=== PATIENT | female | born 1970 | race Caucasian/White ===

== ENCOUNTER 2016-08-18 20:16 | Emergency (ER) | payer OTHER ==
[~2016-08-18] VITALS: Ht 149.8 cm; Wt 62.6 kg
[~2016-08-18 20:16] MED LIST: ANAPROX DS550 MG PO; ASPIRIN ADULT L81 M1 PO; ASPIRIN81 M1 PO; AUGMENTIN 875875 MG PO; CATAFLAM50 MG PO; CLARITIN10 MG PO; CYMBALTA60 MG PO; DIFLUCAN150 MG PO; DONNATAL1 TAB PO; DUONEB 3 MG/3 ML3 M1 INH; ELIMITE 5%60 GM PO; ELMIRON100 MG PO; FLAGYL500 MG PO; FLEXERIL10 MG PO; FLONASE 0.05% 121 EA NAS; HYDROCODONE BIT1 T11 PO; IBUPROFEN600 MG PO; INDOCIN50 MG PO; KEFLEX500 M1 PO; KEFLEX500 MG PO; LAMICTAL100 MG PO; LYRICA100 MG PO; LYRICA50 MG PO; MACROBID100 M1 PO; MACRODANTIN100 MG PO; MOTRIN800 MG PO; NEXIUM40 MG PO; PEPCID20 MG PO; PREDNICOT20 MG PO; PREDNISONE20 MG PO; PROAIR HFA0.09 MG/AC IH; PYRIDIUM200 MG PO; REGLAN5 MG PO; SIMVASTATIN40 MG PO; SOMA250 MG PO; SOMA350 MG PO; TOBRADEX 0.1%-0.5 ML OPH; TOPAMAX100 M1 PO; TOPAMAX100 MG PO; TRAZODONE100 MG PO; ULTRAM50 MG PO; VIBRA-TAB100 MG PO; VIBRAMYCIN100 MG PO; VICODIN 5/500 505 MG PO; VICODIN 500 MG-1 TAB PO; VISTARIL50 MG PO; XANAX0.5 MG PO; XANAX1 MG PO; ZITHROMAX Z PA250 MG PO; ZITHROMAX250 MG PO; ZOFRAN ODT4 MG SL; Zofran4 MG PO
[2016-08-18] MEDS ORDERED: NORCO 5-325 TA1 EACH PO (20:28)
[2016-08-18] MEDS ORDERED: MELOXICAM15 MG PO (20:28)
[2016-08-18 20:58] LABS: BASO % 0.3 % (0.0-1.0); EOS # 0.1 10*3/uL (0.0-0.4); EOS % 1.4 % (1.0-4.0); HEMATOCRIT 41.1 % (37.0-47.0); HEMOGLOBIN 13.6 g/dl (12.0-16.0); LYMPH # 3.5 10*3/uL (1.3-4.4); LYMPH % 48.8 % (27.0-41.0); MEAN CELL VOLUME 95.6 fl (81.0-99.0); MEAN CORPUSCULAR HGB 31.6 pg (27.0-31.0); MEAN CORPUSCULAR HGB CONC 33.1 g/dl (33.0-37.0); MEAN PLATELET VOLUME 9.2 fl (9.6-12.3); MONO # 0.4 10*3/uL (0.1-1.0); MONO % 6.2 % (3.0-9.0); NEUT # 3.1 10*3/uL (2.3-7.9); PLATELET COUNT AUTOMATED 208 10*3/uL (130-400); RED CELL DISTRI WIDTH 13.1 % (0-14.5); WHITE BLOOD COUNT 7.1 10*3/uL (4.8-10.8)
[2016-08-18 21:08] LABS: PROTHROMBIN TIME 10.3 SECONDS (9.0-12.4)
[2016-08-18 21:21] LABS: ALBUMIN 3.9 gm/dl (3.1-4.5); ALKALINE PHOSPHATASE 67 U/L (45-117); BILIRUBIN, TOTAL 0.3 mg/dl (0.2-1.0); BUN 20 mg/dl (7-24); CARBON DIOXIDE 24 mmol/L (21-32); CHLORIDE 113 mmol/L (98-107); EST GLOM FILT AFRICAN AMERICAN > 60 ml/min; GLUCOSE 96 mg/dL (65-99); POTASSIUM 3.8 mmol/L (3.5-5.1); SGOT/AST 9 IU/L (3-35); SGPT/ALT 24 U/L (12-78); SODIUM 146 mmol/L (136-145); TOTAL PROTEIN 6.9 gm/dL (6.4-8.2)
[2016-08-18 21:23] LABS: TROPONIN I < 0.015 ng/ml (<0.5)
[2016-08-18] MEDS ORDERED: Motrin,Rufen800 MG PO (22:00)
[2016-08-18] MEDS ORDERED: CYCLOBENZAPRINE5 M3 PO (22:00)
== END 2016-08-18 22:11 | disposition home or self-care (01) ==
LOC: ED 20:16
PROVIDERS: Emergency Medicine Emergency Medical Services
DX: R07.89 Other chest pain (principal); F17.200 Nicotine dependence, unspecified, uncomplicated; Z79.82 Long term (current) use of aspirin; Z98.890 Other specified postprocedural states; Z90.710 Acquired absence of both cervix and uterus; Z88.2 Allergy status to sulfonamides; Z91.040 Latex allergy status; Z88.1 Allergy status to other antibiotic agents

== ENCOUNTER 2016-12-20 09:05 | Emergency (ER) | payer OTHER ==
[~2016-12-20] VITALS: Ht 149.8 cm; Wt 64.4 kg
[~2016-12-20 09:05] MED LIST changes: +CYCLOBENZAPRINE5 M3 PO; +MELOXICAM15 MG PO; +Motrin,Rufen800 MG PO; +NORCO 5-325 TA1 EACH PO
[2016-12-20] MEDS ORDERED: ONDANSETRON HYDR4 MG PO (09:15)
[2016-12-20 09:45] LABS: BASO % 0.2 % (0.0-1.0); EOS # 0.1 10*3/uL (0.0-0.4); EOS % 1.3 % (1.0-4.0); HEMATOCRIT 41.1 % (37.0-47.0); HEMOGLOBIN 13.5 g/dl (12.0-16.0); MEAN CELL VOLUME 95.6 fl (81.0-99.0); MEAN CORPUSCULAR HGB 31.4 pg (27.0-31.0); MEAN CORPUSCULAR HGB CONC 32.8 g/dl (33.0-37.0); MEAN PLATELET VOLUME 9.7 fl (9.6-12.3); MONO # 0.4 10*3/uL (0.1-1.0); MONO % 6.5 % (3.0-9.0); NEUT # 3.5 10*3/uL (2.3-7.9); NEUT % 58.8 % (47.0-73.0); PLATELET COUNT AUTOMATED 170 10*3/uL (130-400); RED CELL DISTRI WIDTH 13.3 % (0-14.5)
[2016-12-20 09:59] LABS: BILIRUBIN, TOTAL 0.2 mg/dl (0.2-1.0); BUN 13 mg/dl (7-24); CARBON DIOXIDE 21 mmol/L (21-32); CHLORIDE 115 mmol/L (98-107); EST GLOM FILT AFRICAN AMERICAN > 60 ml/min; GLUCOSE 109 mg/dL (65-99); POTASSIUM 4.6 mmol/L (3.5-5.1); SGOT/AST 18 IU/L (3-35); SGPT/ALT 20 U/L (12-78); SODIUM 145 mmol/L (136-145)
[2016-12-20 10:05] LABS: ALKALINE PHOSPHATASE 71 U/L (45-117)
== END 2016-12-20 12:17 | disposition home or self-care (01) ==
LOC: ED 09:05
PROVIDERS: Nurse Practitioner Family
DX: G43.909 Migraine, unspecified, not intractable, without status migrainosus (principal); Z88.1 Allergy status to other antibiotic agents; Z88.2 Allergy status to sulfonamides; Z91.040 Latex allergy status; F17.200 Nicotine dependence, unspecified, uncomplicated; Z79.82 Long term (current) use of aspirin; Z79.899 Other long term (current) drug therapy

== ENCOUNTER 2017-06-24 13:19 | Emergency (ER) | payer OTHER ==
[~2017-06-24] VITALS: Ht 149.8 cm; Wt 68.0 kg
[~2017-06-24 13:19] MED LIST changes: +ONDANSETRON HYDR4 MG PO
[2017-06-24] MEDS ORDERED: PREDNISONE10 MG PO (14:13)
[2017-06-24] MEDS ORDERED: 'PARAFON FORTE500 M1 PO (14:13)
== END 2017-06-24 15:24 | disposition home or self-care (01) ==
LOC: ED 13:19
DX: M54.41 Lumbago with sciatica, right side (principal); M54.42 Lumbago with sciatica, left side; R03.0 Elevated blood-pressure reading, without diagnosis of hypertension; G43.909 Migraine, unspecified, not intractable, without status migrainosus; F17.200 Nicotine dependence, unspecified, uncomplicated; Z91.040 Latex allergy status; Z88.2 Allergy status to sulfonamides; Z88.1 Allergy status to other antibiotic agents; Z79.899 Other long term (current) drug therapy; Z79.02 Long term (current) use of antithrombotics/antiplatelets; Z86.73 Personal history of transient ischemic attack (TIA), and cerebral infarction without residual deficits

== ENCOUNTER 2017-08-09 14:44 | Emergency (ER) | payer OTHER ==
[~2017-08-09] VITALS: Ht 149.8 cm; Wt 59.0 kg
[~2017-08-09 14:44] MED LIST changes: +'PARAFON FORTE500 M1 PO; +PREDNISONE10 MG PO
[2017-08-09 15:06] LABS: BASO % 0.1 % (0.0-1.0); EOS # 0.1 10*3/uL (0.0-0.4); EOS % 1.3 % (1.0-4.0); HEMATOCRIT 44.1 % (37.0-47.0); HEMOGLOBIN 14.4 g/dl (12.0-16.0); LYMPH # 2.8 10*3/uL (1.3-4.4); LYMPH % 31.9 % (27.0-41.0); MEAN CELL VOLUME 94.4 fl (81.0-99.0); MEAN CORPUSCULAR HGB 30.8 pg (27.0-31.0); MEAN CORPUSCULAR HGB CONC 32.7 g/dl (33.0-37.0); MEAN PLATELET VOLUME 9.1 fl (9.6-12.3); MONO # 0.6 10*3/uL (0.1-1.0); MONO % 6.8 % (3.0-9.0); NEUT # 5.3 10*3/uL (2.3-7.9); NEUT % 59.7 % (47.0-73.0); PLATELET COUNT AUTOMATED 225 10*3/uL (130-400); RED BLOOD COUNT 4.67 10*6/uL (4.10-5.10); RED CELL DISTRI WIDTH 13.7 % (0-14.5); WHITE BLOOD COUNT 8.9 10*3/uL (4.8-10.8)
[2017-08-09 15:15] LABS: ACT PARTIAL THROMBO TIME 24.3 SECONDS (20.8-31.5)
[2017-08-09 15:23] LABS: ALBUMIN 3.9 gm/dl (3.1-4.5); ALKALINE PHOSPHATASE 80 U/L (45-117); BUN 17 mg/dl (7-24); CHLORIDE 105 mmol/L (98-107); CREATININE 0.85 mg/dL (0.55-1.02); POTASSIUM 3.8 mmol/L (3.5-5.1); SGOT/AST 13 IU/L (3-35); SGPT/ALT 22 U/L (12-78); SODIUM 140 mmol/L (136-145); TOTAL PROTEIN 7.3 gm/dL (6.4-8.2)
[2017-08-09 15:24] LABS: TROPONIN I < 0.015 ng/ml (<0.045)
== END 2017-08-09 16:41 | disposition home or self-care (01) ==
LOC: ED 14:44
PROVIDERS: Emergency Medicine
DX: R07.89 Other chest pain (principal); F41.9 Anxiety disorder, unspecified; F17.210 Nicotine dependence, cigarettes, uncomplicated; E78.00 Pure hypercholesterolemia, unspecified; I10 Essential (primary) hypertension; G43.909 Migraine, unspecified, not intractable, without status migrainosus; Z98.890 Other specified postprocedural states; Z90.710 Acquired absence of both cervix and uterus; Z79.82 Long term (current) use of aspirin; Z79.899 Other long term (current) drug therapy; Z88.2 Allergy status to sulfonamides; Z88.1 Allergy status to other antibiotic agents; Z91.040 Latex allergy status; Z86.73 Personal history of transient ischemic attack (TIA), and cerebral infarction without residual deficits

== ENCOUNTER 2017-09-15 18:32 | Emergency (ER) | payer OTHER ==
[~2017-09-15] VITALS: Wt 71.2 kg
[2017-09-15] MEDS ORDERED: ROBITUSSIN DM 105 ML PO (20:15)
[2017-09-15] MEDS ORDERED: AMOXICILLIN500 M2 PO (20:15)
== END 2017-09-15 20:22 | disposition home or self-care (01) ==
LOC: ED 18:32
DX: J20.9 Acute bronchitis, unspecified (principal); F17.200 Nicotine dependence, unspecified, uncomplicated; Z88.2 Allergy status to sulfonamides; Z91.040 Latex allergy status; Z88.1 Allergy status to other antibiotic agents; Z79.82 Long term (current) use of aspirin; Z79.899 Other long term (current) drug therapy

== ENCOUNTER 2017-12-01 18:47 | Emergency (ER) | payer OTHER ==
[~2017-12-01] VITALS: Ht 149.8 cm; Wt 68.9 kg
--- NOTE | ~2017-12-01 | EKG ---
[place], [place] ELECTROCARDIOGRAM REPORT NAME: MARINA PENG UNIT #: [id number] ROOM: DOCTOR: COREY SEGUNDO MD BIRTHDATE: [birth year] DOS: 12/01/2017 TIME: 1852 hours. FINDINGS: 1. Normal sinus rhythm at 82 beats per minute with frequent unifocal PVCs. 2. No evidence of ischemia or infarction. 3. No previous tracing is available for comparison. COREY SEGUNDO MD CM:EKGRPT:ELECTROCARDIOGRAM REPORT [id number] COREY SEGUNDO MD
--- NOTE | ~2017-12-01 | EKG ---
[place], [place] ELECTROCARDIOGRAM REPORT NAME: MARINA PENG UNIT #: [id number] ROOM: DOCTOR: COREY SEGUNDO MD BIRTHDATE: [birth year] DOS: 12/01/2017 TIME: 2101 hours. FINDINGS: 1. Normal sinus rhythm at 55 beats per minute. 2. The tracing is normal. 3. When compared with an ECG done a few hours earlier, PVCs are no longer seen. COREY SEGUNDO MD CM:EKGRPT:ELECTROCARDIOGRAM REPORT [id number] [id number] COREY SEGUNDO MD
[~2017-12-01 18:47] MED LIST changes: +AMOXICILLIN500 M2 PO; +ROBITUSSIN DM 105 ML PO
[2017-12-01 19:05] LABS: BASO % 0.3 % (0.0-1.0); EOS % 0.3 % (1.0-4.0); HEMATOCRIT 42.8 % (37.0-47.0); HEMOGLOBIN 14.2 g/dl (12.0-16.0); LYMPH # 1.5 10*3/uL (1.3-4.4); LYMPH % 25.4 % (27.0-41.0); MEAN CELL VOLUME 93.2 fl (81.0-99.0); MEAN CORPUSCULAR HGB 30.9 pg (27.0-31.0); MEAN CORPUSCULAR HGB CONC 33.2 g/dl (33.0-37.0); MEAN PLATELET VOLUME 9.7 fl (9.6-12.3); MONO # 0.4 10*3/uL (0.1-1.0); MONO % 7.4 % (3.0-9.0); NEUT # 3.8 10*3/uL (2.3-7.9); NEUT % 66.4 % (47.0-73.0); PLATELET COUNT AUTOMATED 166 10*3/uL (130-400); RED BLOOD COUNT 4.59 10*6/uL (4.10-5.10); RED CELL DISTRI WIDTH 13.8 % (0-14.5); WHITE BLOOD COUNT 5.8 10*3/uL (4.8-10.8)
[2017-12-01 19:15] LABS: ACT PARTIAL THROMBO TIME 24.9 SECONDS (20.8-31.5); INTERNATIONAL NORM RATIO 1.1 (2.0-3.5)
[2017-12-01 19:22] LABS: ALBUMIN 3.9 gm/dl (3.1-4.5); ALKALINE PHOSPHATASE 65 U/L (45-117); BUN 15 mg/dl (7-24); CHLORIDE 108 mmol/L (98-107); CREATININE 0.95 mg/dL (0.55-1.02); POTASSIUM 3.3 mmol/L (3.5-5.1); SGOT/AST 18 IU/L (3-35); SGPT/ALT 32 U/L (12-78); SODIUM 138 mmol/L (136-145); TOTAL PROTEIN 7.1 gm/dL (6.4-8.2)
[2017-12-01 19:26] LABS: BILIRUBIN 1+ (NEGATIVE); BLOOD 3+ (NEGATIVE); CLARITY SL CLOUDY (CLEAR); COLOR YELLOW (YELLOW); GLUCOSE NEGATIVE (NEGATIVE); KETONE TRACE (NEGATIVE); LEUKO ESTERASE NEGATIVE (NEGATIVE); NITRITE NEGATIVE (NEGATIVE); SPECIFIC GRAVITY >= 1.030 (1.005-1.030); UROBILINOGEN 0.2 E.U./dl (0.2-1.0)
[2017-12-01 19:28] LABS: TROPONIN I < 0.015 ng/ml (<0.045)
[2017-12-01 19:35] LABS: BACTERIA 1+; MUCOUS 2+
[2017-12-01 19:36] LABS: EPITHELIAL CELLS 16-20
[2017-12-01 19:37] LABS: RBC 21-30 rbc/hpf (0-2)
[2017-12-01] MEDS ORDERED: K-TAB20 MEQ PO (21:11)
== END 2017-12-01 21:30 | disposition home or self-care (01) ==
LOC: ED 18:47
PROVIDERS: Emergency Medicine Emergency Medical Services; Student in an Organized Health Care Education/Training Program
DX: R07.89 Other chest pain (principal); G43.909 Migraine, unspecified, not intractable, without status migrainosus; Z86.73 Personal history of transient ischemic attack (TIA), and cerebral infarction without residual deficits; Z90.710 Acquired absence of both cervix and uterus; Z98.890 Other specified postprocedural states; Z79.82 Long term (current) use of aspirin; Z79.899 Other long term (current) drug therapy; Z88.2 Allergy status to sulfonamides; Z88.1 Allergy status to other antibiotic agents; Z91.040 Latex allergy status

== ENCOUNTER → 2017-12-16 | Outpatient (CLI) | payer OTHER ==
[~2017-12-16] MED LIST changes: +K-TAB20 MEQ PO
--- NOTE | ~2017-12-16 | PF ---
[place], [place] PULMONARY FUNCTION TEST [id number] UN[facility] #: [id number] ROOM: DOCTOR: JERRELL LAGUNA MD,HOANG BIRTHDATE: [birth year] DOS: 12/16/2017 PULMONARY FUNCTION TEST DATE OF TESTIN12/16/2017. TEST ORDERED BY: Anitra Velásquez. HISTORY: The patient is recorded 47-year-old female, height of 59 inches, weight 145 pounds, BMI 29.3. Testing is done for assessment of symptoms of shortness of breath, chronic tobacco use noted for 35 years as a pack of cigarettes per day. The patient reported symptoms of dyspnea with exertion with productive cough and frequent wheezing. SPIROMETRY: The FVC was recorded 2.50 liters as 84% predicted value. The FEV1 was recorded 1.56 liters, 68% predicted value. Ratio of FEV1/FVC postbronchodilator was noted 64%. 19% improvement noted in FEV1 and 15% in FVC post-bronchodilator test. Flow volume suggestive of obstructive airway pattern with reversibility after bronchodilator. LUNG VOLUME: Thoracic gas volume recorded as 135%, residual volume 197%, total lung capacity 123% and RV/TLC ratio 162%. The lung volume suggestive of moderate air trapping and hyperinflation. The patient's lung diffusion was recorded normal at 123%. The patient's airway resistance and passive conductance noted abnormal, partial improvement post-bronchodilator test. FINAL IMPRESSION: The test is currently suggestive of evidence of moderate bronchial asthma for this patient with air trapping and hyperinflation. The possible diagnosis of chronic obstructive pulmonary disease would be considered concomitantly as well. HOANG ALLAN MD CM:PFREPORT:PULMONARY FUNCTION TEST 1030 [id number] HOANG LAGUNA MD
== END | disposition home or self-care (01) ==
LOC: CP 08:28
DX: R06.02 Shortness of breath (principal); F17.210 Nicotine dependence, cigarettes, uncomplicated

== ENCOUNTER 2018-06-30 15:58 | Emergency (ER) | payer OTHER ==
[~2018-06-30] VITALS: Wt 58.1 kg
[2018-06-30 16:38] LABS: BASO % 0.4 % (0.0-1.0); EOS # 0.1 10*3/uL (0.0-0.4); EOS % 1.3 % (1.0-4.0); HEMATOCRIT 40.7 % (37.0-47.0); HEMOGLOBIN 13.6 g/dl (12.0-16.0); LYMPH # 3.1 10*3/uL (1.3-4.4); LYMPH % 41.6 % (27.0-41.0); MEAN CELL VOLUME 95.8 fl (81.0-99.0); MEAN CORPUSCULAR HGB CONC 33.4 g/dl (33.0-37.0); MEAN PLATELET VOLUME 9.5 fl (9.6-12.3); MONO # 0.6 10*3/uL (0.1-1.0); MONO % 7.7 % (3.0-9.0); NEUT # 3.7 10*3/uL (2.3-7.9); NEUT % 48.7 % (47.0-73.0); PLATELET COUNT AUTOMATED 193 10*3/uL (130-400); RED BLOOD COUNT 4.25 10*6/uL (4.10-5.10); WHITE BLOOD COUNT 7.5 10*3/uL (4.8-10.8)
[2018-06-30 16:52] LABS: ALBUMIN 3.8 gm/dl (3.1-4.5); ALKALINE PHOSPHATASE 81 U/L (45-117); BUN 17 mg/dl (7-24); CHLORIDE 110 mmol/L (98-107); CREATININE 0.94 mg/dL (0.55-1.02); POTASSIUM 3.7 mmol/L (3.5-5.1); SGOT/AST 10 IU/L (3-35); SGPT/ALT 19 U/L (12-78); SODIUM 141 mmol/L (136-145); TOTAL PROTEIN 7.1 gm/dL (6.4-8.2)
[2018-06-30] MEDS ORDERED: TESSALON PERLE100 M1 PO (17:38)
[2018-06-30] MEDS ORDERED: DELTASONE20 M1 PO (17:38)
[2018-06-30] MEDS ORDERED: PROVENTIL HFA6.7 GM INH (17:38)
[2018-06-30] MEDS ORDERED: DOXYCYCLINE100 M3 PO (17:38)
== END 2018-06-30 17:47 | disposition left against medical advice (07) ==
LOC: ED 15:58
PROVIDERS: Physician Assistant
DX: J44.1 Chronic obstructive pulmonary disease with (acute) exacerbation (principal); Z88.2 Allergy status to sulfonamides; Z91.040 Latex allergy status; Z88.1 Allergy status to other antibiotic agents; Z79.82 Long term (current) use of aspirin; Z79.899 Other long term (current) drug therapy; Z90.710 Acquired absence of both cervix and uterus

== ENCOUNTER → 2019-01-06 | Outpatient (CLI) | payer OTHER ==
[~2019-01-06] MED LIST changes: +DELTASONE20 M1 PO; +DOXYCYCLINE100 M3 PO; +PROVENTIL HFA6.7 GM INH; +TESSALON PERLE100 M1 PO
[2019-01-06 14:41] LABS: BILIRUBIN NEGATIVE (NEGATIVE); BLOOD 1+ (NEGATIVE); CLARITY CLEAR (CLEAR); COLOR YELLOW (YELLOW); GLUCOSE NEGATIVE (NEGATIVE); KETONE NEGATIVE (NEGATIVE); LEUKO ESTERASE NEGATIVE (NEGATIVE); NITRITE NEGATIVE (NEGATIVE); PH 5.5 (5.0-9.0); SPECIFIC GRAVITY >= 1.030 (1.005-1.030); UROBILINOGEN 0.2 E.U./dl (0.2-1.0)
[2019-01-06 14:42] LABS: BASO % 0.2 % (0.0-1.0); EOS # 0.1 10*3/uL (0.0-0.4); HEMATOCRIT 42.2 % (37.0-47.0); HEMOGLOBIN 13.9 g/dl (12.0-16.0); LYMPH # 4.5 10*3/uL (1.3-4.4); MEAN CORPUSCULAR HGB 31.3 pg (27.0-31.0); MEAN CORPUSCULAR HGB CONC 32.9 g/dl (33.0-37.0); MEAN PLATELET VOLUME 9.9 fl (9.6-12.3); MONO # 0.6 10*3/uL (0.1-1.0); MONO % 6.9 % (3.0-9.0); NEUT % 36.8 % (47.0-73.0); PLATELET COUNT AUTOMATED 212 10*3/uL (130-400); RED BLOOD COUNT 4.44 10*6/uL (4.10-5.10); RED CELL DISTRI WIDTH 13.4 % (0-14.5); WHITE BLOOD COUNT 8.3 10*3/uL (4.8-10.8)
[2019-01-06 14:53] LABS: BACTERIA TRACE; EPITHELIAL CELLS 0-2
[2019-01-06 15:12] LABS: ALBUMIN 3.9 gm/dl (3.1-4.5); BILIRUBIN, DIRECT < 0.1 mg/dL (0.0-0.2); BUN 29 mg/dl (7-24); CHLORIDE 112 mmol/L (98-107); CREATININE 0.87 mg/dL (0.55-1.02); POTASSIUM 3.8 mmol/L (3.5-5.1); SGOT/AST 5 IU/L (3-35); SGPT/ALT 17 U/L (12-78); SODIUM 140 mmol/L (136-145)
[2019-01-06 15:13] LABS: ALKALINE PHOSPHATASE 71 U/L (45-117); TOTAL PROTEIN 6.9 gm/dL (6.4-8.2)
[2019-01-10 14:07] LABS: METHYLMALONIC ACID 220 nmol/L (0-378)
== END | disposition home or self-care (01) ==
LOC: LAB 14:10
PROVIDERS: Psychiatry & Neurology Neurology
DX: Q21.1 Atrial septal defect (principal)

== ENCOUNTER → 2019-05-09 | Outpatient (CLI) | payer OTHER ==
[~2019-05-09] MED LIST changes: +PREDNISONE20 M1 PO
== END | disposition home or self-care (01) ==
LOC: RAD 11:41
DX: M54.2 Cervicalgia (principal); R53.1 Weakness

== ENCOUNTER 2019-05-11 14:06 | Emergency (ER) | payer OTHER ==
[~2019-05-11] VITALS: Ht 149.8 cm; Wt 57.6 kg
[~2019-05-11 14:06] MED LIST changes: -PREDNISONE20 M1 PO
[2019-05-11] MEDS ORDERED: ANAPROX DS550 MG PO (15:29)
== END 2019-05-11 15:33 | disposition home or self-care (01) ==
LOC: ED 14:06
DX: S76.012A Strain of muscle, fascia and tendon of left hip, initial encounter (principal); R10.30 Lower abdominal pain, unspecified; Z90.710 Acquired absence of both cervix and uterus; Z88.2 Allergy status to sulfonamides; Z91.041 Radiographic dye allergy status; Z88.1 Allergy status to other antibiotic agents; Z79.2 Long term (current) use of antibiotics; Z79.899 Other long term (current) drug therapy; Z79.82 Long term (current) use of aspirin; X50.1XXA Overexertion from prolonged static or awkward postures, initial encounter; Y93.89 Activity, other specified; Y92.098 Other place in other non-institutional residence as the place of occurrence of the external cause; Y99.8 Other external cause status

== ENCOUNTER 2019-06-19 13:01 | Emergency (ER) | payer OTHER ==
[~2019-06-19] VITALS: Ht 149.8 cm; Wt 56.7 kg
--- NOTE | ~2019-06-19 | EKG ---
[place], [place] ELECTROCARDIOGRAM REPORT NAME: MARINA PENG UNIT #: [id number] ROOM: DOCTOR: EPIPHANY DRAFT REPORT BIRTHDATE: [birth year] [facility] Test Date: 2019-06-19 Test Time: 13:05:53 Pat Name: MARINA PENG Department: Room: Gender: F [employer]ing Machine Mechanic: SUE : 1970 Requested By: RADHA SALCIDO DNP Order Number: [id number] Reading MD: Measurements Intervals Harris Rate: 63 P: 72 CT: 181 QRS: 55 QRSD: 81 T: 60 QT: 430 QTc: 441 Interpretive Statements Sinus rhythm No previous ECG available for comparison CM:EKGRPT:ELECTROCARDIOGRAM REPORT 1305 1012 RADHA SALCIDO DNP EPIPHANY DRAFT REPORT RADHA SALCIDO DNP
[2019-06-19 13:38] LABS: HEMATOCRIT 44.1 % (37.0-47.0); HEMOGLOBIN 14.3 g/dl (12.0-16.0); MEAN CELL VOLUME 94.8 fl (81.0-99.0); MEAN CORPUSCULAR HGB 30.8 pg (27.0-31.0); MEAN CORPUSCULAR HGB CONC 32.4 g/dl (33.0-37.0); MEAN PLATELET VOLUME 9.7 fl (9.6-12.3); PLATELET COUNT AUTOMATED 194 10*3/uL (130-400); RED BLOOD COUNT 4.65 10*6/uL (4.10-5.10); RED CELL DISTRI WIDTH 13.3 % (0-14.5); WHITE BLOOD COUNT 5.8 10*3/uL (4.8-10.8)
[2019-06-19 13:49] LABS: ACT PARTIAL THROMBO TIME 25.2 SECONDS (20.0-32.1); INTERNATIONAL NORM RATIO 0.9 (2.0-3.5)
[2019-06-19 13:52] LABS: ALBUMIN 3.9 gm/dl (3.1-4.5); ALKALINE PHOSPHATASE 68 U/L (45-117); BUN 18 mg/dl (7-24); CHLORIDE 114 mmol/L (98-107); CREATININE 0.85 mg/dL (0.55-1.02); LIPASE 173 U/L (73-393); POTASSIUM 4.3 mmol/L (3.5-5.1); SGOT/AST 12 IU/L (3-35); SGPT/ALT 17 U/L (12-78); SODIUM 141 mmol/L (136-145); TOTAL PROTEIN 6.9 gm/dL (6.4-8.2)
[2019-06-19 13:55] LABS: TROPONIN I < 0.015 ng/ml (<0.045)
[2019-06-19 13:58] LABS: PLATELET SUFFICIENCY NORMAL (NORMAL); TOTAL CELLS COUNTED 100 #CELLS
[2019-06-19] MEDS ORDERED: PROVENTIL HFA6.7 GM INH (15:02)
[2019-06-19] MEDS ORDERED: DOXYCYCLINE100 M3 PO (15:02)
[2019-06-19] MEDS ORDERED: PREDNISONE20 M1 PO (15:02)
== END 2019-06-19 15:15 | disposition home or self-care (01) ==
LOC: ED 13:01
PROVIDERS: Nurse Practitioner Family
DX: J20.9 Acute bronchitis, unspecified (principal); M25.512 Pain in left shoulder; E78.5 Hyperlipidemia, unspecified; E78.00 Pure hypercholesterolemia, unspecified; G43.909 Migraine, unspecified, not intractable, without status migrainosus; F17.200 Nicotine dependence, unspecified, uncomplicated; Z79.899 Other long term (current) drug therapy; Z79.82 Long term (current) use of aspirin; Z88.2 Allergy status to sulfonamides; Z91.040 Latex allergy status; Z88.1 Allergy status to other antibiotic agents; Z86.718 Personal history of other venous thrombosis and embolism; Z86.73 Personal history of transient ischemic attack (TIA), and cerebral infarction without residual deficits

== ENCOUNTER → 2020-09-14 | Outpatient (CLI) | payer OTHER ==
[~2020-09-14] MED LIST changes: +PREDNISONE20 M1 PO
== END | disposition home or self-care (01) ==
LOC: RAD 15:24
PROVIDERS: ATTEND Nurse Practitioner Family
DX: R14.0 Abdominal distension (gaseous) (principal)

== ENCOUNTER → 2020-10-03 | Outpatient (CLI) | payer OTHER | END | disposition home or self-care (01) | LOC: MAMMO 13:52 | PROVIDERS: ATTEND Nurse Practitioner Family | DX: Z12.31 Encounter for screening mammogram for malignant neoplasm of breast (principal) ==

== ENCOUNTER → 2021-04-15 | Outpatient (CLI) | payer OTHER | END | disposition home or self-care (01) | LOC: RAD 15:32 | PROVIDERS: ATTEND Chiropractor | DX: M47.817 Spondylosis without myelopathy or radiculopathy, lumbosacral region (principal); M48.02 Spinal stenosis, cervical region ==

== ENCOUNTER → 2022-05-28 | Outpatient (CLI) | payer OTHER | END | disposition home or self-care (01) | LOC: MAMMO 13:30 | PROVIDERS: ATTEND Nurse Practitioner Family | DX: Z12.31 Encounter for screening mammogram for malignant neoplasm of breast (principal) ==

== ENCOUNTER 2022-10-27 00:37 | Emergency (ER) | payer OTHER ==
[~2022-10-27] VITALS: Ht 149.8 cm; Wt 64.4 kg
[2022-10-27 02:25] LABS: BASO % 0.3 % (0.0-1.0); EOS # 0.1 10*3/uL (0.0-0.4); EOS % 0.9 % (1.0-4.0); HEMATOCRIT 40.3 % (37.0-47.0); LYMPH # 2.9 10*3/uL (1.3-4.4); LYMPH % 36.9 % (27.0-41.0); MEAN CELL VOLUME 92.4 fl (81.0-99.0); MEAN CORPUSCULAR HGB 31.7 pg (27.0-31.0); MEAN CORPUSCULAR HGB CONC 34.2 g/dl (33.0-37.0); MEAN PLATELET VOLUME 9.6 fl (9.6-12.3); MONO # 0.7 10*3/uL (0.1-1.0); MONO % 8.2 % (3.0-9.0); NEUT # 4.2 10*3/uL (2.3-7.9); NEUT % 53.4 % (47.0-73.0); PLATELET COUNT AUTOMATED 182 10*3/uL (130-400); RED BLOOD COUNT 4.36 10*6/uL (4.10-5.10); WHITE BLOOD COUNT 7.9 10*3/uL (4.8-10.8)
[2022-10-27 02:42] LABS: ALKALINE PHOSPHATASE 72 U/L (46-116); BUN 19 mg/dl (9-23); CHLORIDE 107 mmol/L (98-107); LIPASE 53 U/L (12-53); POTASSIUM 3.5 mmol/L (3.4-5.1); SGPT/ALT 13 U/L (10-49); TOTAL PROTEIN 6.6 gm/dL (6.0-8.0)
[2022-10-27 03:49] LABS: BILIRUBIN Negative (Negative); BLOOD 2+ (Negative); CLARITY Clear (Clear); COLOR Yellow (Yellow); GLUCOSE Negative (Negative); KETONE Negative (Negative); LEUKO ESTERASE Negative (Negative); NITRITE Negative (Negative); PH 5.5 (4.5-8.0); SPECIFIC GRAVITY 1.025 (1.001-1.030); UROBILINOGEN 0.2 E.U./dl (0.0-1.0)
[2022-10-27 04:12] LABS: EPITHELIAL CELLS 16-20; WBC 0-2 wbc/hpf (0-5)
[2022-10-27 04:13] LABS: BACTERIA TRACE
== END 2022-10-27 09:16 | disposition home or self-care (01) ==
LOC: ED 00:37
PROVIDERS: Emergency Medicine
DX: R10.13 Epigastric pain (principal); R11.10 Vomiting, unspecified; Z88.2 Allergy status to sulfonamides; E78.00 Pure hypercholesterolemia, unspecified; J44.1 Chronic obstructive pulmonary disease with (acute) exacerbation; E87.6 Hypokalemia; F41.9 Anxiety disorder, unspecified; G43.909 Migraine, unspecified, not intractable, without status migrainosus; Z86.73 Personal history of transient ischemic attack (TIA), and cerebral infarction without residual deficits; Z91.040 Latex allergy status; Z88.1 Allergy status to other antibiotic agents; Z90.710 Acquired absence of both cervix and uterus; Z98.890 Other specified postprocedural states; F17.200 Nicotine dependence, unspecified, uncomplicated

== ENCOUNTER → 2022-11-12 | Outpatient (CLI) | payer OTHER | END | disposition home or self-care (01) | LOC: ORTHO 00:45 | PROVIDERS: ATTEND Orthopaedic Surgery | DX: M19.041 Primary osteoarthritis, right hand (principal) ==

== ENCOUNTER 2023-03-22 16:00 | Emergency (ER) | payer OTHER ==
[~2023-03-22] VITALS: Ht 149.8 cm; Wt 61.7 kg
[2023-03-22] MEDS ORDERED: SERTRALINE HYD100 MG PO (16:18)
[2023-03-22] MEDS ORDERED: ARIPIPRAZOLE2 MG PO (16:18)
[2023-03-22] MEDS ORDERED: NEURONTIN300 MG PO (16:19)
[2023-03-22] MEDS ORDERED: MELOXICAM15 MG PO (16:19)
[2023-03-22 16:36] LABS: BASO % 0.2 % (0.0-1.0); EOS # 0.1 10*3/uL (0.0-0.4); EOS % 1.1 % (1.0-4.0); HEMATOCRIT 45.1 % (37.0-47.0); LYMPH # 2.7 10*3/uL (1.3-4.4); LYMPH % 31.8 % (27.0-41.0); MEAN CELL VOLUME 92.4 fl (81.0-99.0); MEAN CORPUSCULAR HGB 30.7 pg (27.0-31.0); MEAN CORPUSCULAR HGB CONC 33.3 g/dl (33.0-37.0); MEAN PLATELET VOLUME 9.8 fl (9.6-12.3); MONO # 0.6 10*3/uL (0.1-1.0); MONO % 7.1 % (3.0-9.0); NEUT % 59.7 % (47.0-73.0); PLATELET COUNT AUTOMATED 225 10*3/uL (130-400); RED BLOOD COUNT 4.88 10*6/uL (4.10-5.10); RED CELL DISTRI WIDTH 13.2 % (0-14.5); WHITE BLOOD COUNT 8.4 10*3/uL (4.8-10.8)
[2023-03-22 16:46] LABS: ACT PARTIAL THROMBO TIME 27.5 SECONDS (20.0-32.1)
[2023-03-22 17:04] LABS: ALKALINE PHOSPHATASE 79 U/L (46-116); BUN 15 mg/dl (9-23); CHLORIDE 112 mmol/L (98-107); POTASSIUM 3.9 mmol/L (3.4-5.1); SGPT/ALT 12 U/L (10-49); TOTAL PROTEIN 7.1 gm/dL (6.0-8.0)
== END 2023-03-22 18:16 | disposition home or self-care (01) ==
LOC: ED 16:00
PROVIDERS: Internal Medicine
DX: F41.9 Anxiety disorder, unspecified (principal); R07.89 Other chest pain; E78.00 Pure hypercholesterolemia, unspecified; G43.909 Migraine, unspecified, not intractable, without status migrainosus; Z86.718 Personal history of other venous thrombosis and embolism; Z88.2 Allergy status to sulfonamides; Z91.040 Latex allergy status; Z88.8 Allergy status to other drugs, medicaments and biological substances; Z98.890 Other specified postprocedural states; Z90.710 Acquired absence of both cervix and uterus

== ENCOUNTER 2023-12-18 17:42 | Emergency (ER) | payer OTHER ==
[~2023-12-18] VITALS: Ht 149.8 cm; Wt 56.4 kg
[~2023-12-18 17:42] MED LIST changes: +ARIPIPRAZOLE2 MG PO; +NEURONTIN300 MG PO; +SERTRALINE HYD100 MG PO
[2023-12-18] MEDS ORDERED: HYDROmorphONE Hydrochloride 1 MG/ML SYR IV ONE (18:25)
[2023-12-18] MEDS ORDERED: Ondansetron Hydrochloride 4 MG/2 ML VIAL IV ONE (18:25)
[2023-12-18] MEDS ORDERED: PERCOCET 5-3251 EACH PO (18:29)
== END 2023-12-18 18:57 | disposition home or self-care (01) ==
LOC: ED 17:42
DX: S52.501A Unspecified fracture of the lower end of right radius, initial encounter for closed fracture (principal); W01.198A Fall on same level from slipping, tripping and stumbling with subsequent striking against other object, initial encounter; Y93.89 Activity, other specified; Y92.89 Other specified places as the place of occurrence of the external cause; Y99.8 Other external cause status; S09.8XXA Other specified injuries of head, initial encounter; Z88.2 Allergy status to sulfonamides; Z91.040 Latex allergy status; Z88.8 Allergy status to other drugs, medicaments and biological substances; Z98.890 Other specified postprocedural states; Z90.710 Acquired absence of both cervix and uterus

== ENCOUNTER 2023-12-20 01:14 | Emergency (ER) | payer OTHER ==
[~2023-12-20] VITALS: Ht 149.8 cm; Wt 59.0 kg
[~2023-12-20 01:14] MED LIST changes: +PERCOCET 5-3251 EACH PO
[2023-12-22] MEDS ORDERED: [UNRECOGNIZED DRUG - OTHER] INH (14:34)
== END 2023-12-20 02:25 | disposition home or self-care (01) ==
LOC: ED 01:14
DX: S52.501A Unspecified fracture of the lower end of right radius, initial encounter for closed fracture (principal); S52.601D Unspecified fracture of lower end of right ulna, subsequent encounter for closed fracture with routine healing; Z86.73 Personal history of transient ischemic attack (TIA), and cerebral infarction without residual deficits; E78.00 Pure hypercholesterolemia, unspecified; G43.909 Migraine, unspecified, not intractable, without status migrainosus; Z88.2 Allergy status to sulfonamides; Z91.040 Latex allergy status; Z88.8 Allergy status to other drugs, medicaments and biological substances; Z90.710 Acquired absence of both cervix and uterus; Z98.890 Other specified postprocedural states; X58.XXXA Exposure to other specified factors, initial encounter; Y93.89 Activity, other specified; Y92.009 Unspecified place in unspecified non-institutional (private) residence as the place of occurrence of the external cause; Y99.8 Other external cause status

== ENCOUNTER → 2023-12-24 | Day surgery (SDC) | payer OTHER ==
[~2023-12-24] VITALS: Ht 149.8 cm; Wt 59.0 kg
[~2023-12-24] MED LIST changes: +Albuterol Sulfate 2.5 MG/3 ML VIAL NEB ONE; +DEXAMETHASONE SODIUM PHOSP/PRESERVATIVE FREE 10 MG/ML VIAL ONE; +HYDROCODONE-AC1 EAC1 PO; +Lactated Ringer's Solution 1,000 ML IV ONE; +Midazolam Hydrochloride 2 MG/2 ML VIAL ONE; +PROPOFOL 200 MG/20 ML VIAL IV ONE; +Ropivacaine Hydrochloride 5 MG/ML 20 ML AMP IJ ONE; +SODIUM CHLORIDE 0.9% 1,000 ML IV ONE; +[UNRECOGNIZED DRUG - OTHER] INH; +ceFAZolin sodium/sodium chlor 10 ML IV ONE; +fentaNYL CITRATE 100 MCG/2 ML VIAL IV ONE
[2023-12-24 08:15] VITALS: BP 129/85
[2023-12-24 12:28] VITALS: BP 131/75
[2023-12-24 12:45] VITALS: BP 114/69
[2023-12-24 13:22] VITALS: BP 130/74
== END | disposition home or self-care (01) ==
LOC: SDC 12-22 08:00
PROVIDERS: ATTEND Orthopaedic Surgery
DX: S52.571A Other intraarticular fracture of lower end of right radius, initial encounter for closed fracture (principal); G43.909 Migraine, unspecified, not intractable, without status migrainosus; J44.9 Chronic obstructive pulmonary disease, unspecified; F41.9 Anxiety disorder, unspecified; F32.A Depression, unspecified; F17.210 Nicotine dependence, cigarettes, uncomplicated; Z90.710 Acquired absence of both cervix and uterus; Z98.891 History of uterine scar from previous surgery; Z86.73 Personal history of transient ischemic attack (TIA), and cerebral infarction without residual deficits; Z98.890 Other specified postprocedural states; Z79.899 Other long term (current) drug therapy; Z91.040 Latex allergy status; Z88.2 Allergy status to sulfonamides; Z88.8 Allergy status to other drugs, medicaments and biological substances; X58.XXXA Exposure to other specified factors, initial encounter; Y93.89 Activity, other specified; Y92.89 Other specified places as the place of occurrence of the external cause; Y99.8 Other external cause status

== ENCOUNTER → 2023-12-25 | Outpatient (CLI) | payer OTHER ==
[~2023-12-25] MED LIST changes: -Albuterol Sulfate 2.5 MG/3 ML VIAL NEB ONE; -DEXAMETHASONE SODIUM PHOSP/PRESERVATIVE FREE 10 MG/ML VIAL ONE; -Lactated Ringer's Solution 1,000 ML IV ONE; -Midazolam Hydrochloride 2 MG/2 ML VIAL ONE; -PROPOFOL 200 MG/20 ML VIAL IV ONE; -Ropivacaine Hydrochloride 5 MG/ML 20 ML AMP IJ ONE; -SODIUM CHLORIDE 0.9% 1,000 ML IV ONE; -ceFAZolin sodium/sodium chlor 10 ML IV ONE; -fentaNYL CITRATE 100 MCG/2 ML VIAL IV ONE
== END | disposition home or self-care (01) ==
LOC: RAD 10:15
PROVIDERS: ATTEND Orthopaedic Surgery
DX: S52.601D Unspecified fracture of lower end of right ulna, subsequent encounter for closed fracture with routine healing (principal); X58.XXXD Exposure to other specified factors, subsequent encounter

== ENCOUNTER → 2024-01-08 | Outpatient (CLI) | payer OTHER | END | disposition home or self-care (01) | LOC: ORTHO 01:59 | PROVIDERS: ATTEND Orthopaedic Surgery | DX: S52.601D Unspecified fracture of lower end of right ulna, subsequent encounter for closed fracture with routine healing (principal); X58.XXXD Exposure to other specified factors, subsequent encounter ==

== ENCOUNTER → 2024-02-05 | Outpatient (CLI) | payer OTHER | END | disposition home or self-care (01) | LOC: ORTHO 02:02 | PROVIDERS: ATTEND Orthopaedic Surgery | DX: S52.601D Unspecified fracture of lower end of right ulna, subsequent encounter for closed fracture with routine healing (principal); X58.XXXD Exposure to other specified factors, subsequent encounter ==

== ENCOUNTER → 2024-02-24 | Outpatient (CLI) | payer OTHER | END | disposition home or self-care (01) | LOC: ORTHO 01:57 | PROVIDERS: ATTEND Orthopaedic Surgery | DX: S52.611D Displaced fracture of right ulna styloid process, subsequent encounter for closed fracture with routine healing (principal); Z98.890 Other specified postprocedural states; X58.XXXD Exposure to other specified factors, subsequent encounter ==

== ENCOUNTER 2024-05-05 18:45 | Emergency (ER) | payer OTHER ==
[~2024-05-05] VITALS: Ht 149.8 cm; Wt 60.3 kg
== END 2024-05-05 22:04 | disposition home or self-care (01) ==
LOC: ED 18:45
DX: M24.831 Other specific joint derangements of right wrist, not elsewhere classified (principal); E78.00 Pure hypercholesterolemia, unspecified; G43.909 Migraine, unspecified, not intractable, without status migrainosus; Z86.73 Personal history of transient ischemic attack (TIA), and cerebral infarction without residual deficits; Z88.2 Allergy status to sulfonamides; Z91.040 Latex allergy status; Z88.1 Allergy status to other antibiotic agents; Z98.890 Other specified postprocedural states; Z90.710 Acquired absence of both cervix and uterus; Z87.891 Personal history of nicotine dependence

== ENCOUNTER → 2024-07-29 | Outpatient (CLI) | payer OTHER | END | disposition home or self-care (01) | LOC: MRI 13:00 | PROVIDERS: ATTEND Orthopaedic Surgery | DX: S52.613A Displaced fracture of unspecified ulna styloid process, initial encounter for closed fracture (principal); M25.531 Pain in right wrist; X58.XXXA Exposure to other specified factors, initial encounter; Y93.89 Activity, other specified; Y92.89 Other specified places as the place of occurrence of the external cause; Y99.8 Other external cause status ==

== ENCOUNTER 2024-08-19 15:38 | Emergency (ER) | payer OTHER ==
[~2024-08-19] VITALS: Ht 149.8 cm; Wt 63.5 kg
[2024-08-19] MEDS ORDERED: Meclizine Hydrochloride 12.5 MG TAB PO ONE (16:45)
[2024-08-19] MEDS ORDERED: SODIUM CHLORIDE 0.9% 1,000 ML IV ONE (16:45)
[2024-08-19 16:57] LABS: BASO % 0.3 % (0.0-1.0); EOS # 0.1 10*3/uL (0.0-0.4); EOS % 0.8 % (1.0-4.0); HEMATOCRIT 45.8 % (37.0-47.0); MEAN CORPUSCULAR HGB 31.7 pg (27.0-31.0); MEAN CORPUSCULAR HGB CONC 33.4 g/dl (33.0-37.0); MEAN PLATELET VOLUME 9.3 fl (9.6-12.3); MONO # 0.6 10*3/uL (0.1-1.0); MONO % 7.3 % (3.0-9.0); NEUT # 3.9 10*3/uL (2.3-7.9); NEUT % 51.6 % (47.0-73.0); PLATELET COUNT AUTOMATED 243 10*3/uL (130-400); RED BLOOD COUNT 4.82 10*6/uL (4.10-5.10); RED CELL DISTRI WIDTH 13.2 % (0-14.5); WHITE BLOOD COUNT 7.5 10*3/uL (4.8-10.8)
[2024-08-19 17:16] LABS: BUN 16 mg/dl (9-23); CHLORIDE 108 mmol/L (98-107); POTASSIUM 4.2 mmol/L (3.4-5.1)
[2024-08-19] MEDS ORDERED: PREDNISONE50 MG PO (19:01)
[2024-08-19] MEDS ORDERED: MEDI-MECLIZINE25 MG PO (19:02)
[2024-08-19] MEDS ORDERED: methylPREDNISolone sod succ 125 MG VIAL IV ONE (19:10)
== END 2024-08-19 19:32 | disposition home or self-care (01) ==
LOC: ED 15:38
PROVIDERS: Nurse Practitioner Family
DX: H83.02 Labyrinthitis, left ear (principal); R42 Dizziness and giddiness; R11.0 Nausea; Z86.73 Personal history of transient ischemic attack (TIA), and cerebral infarction without residual deficits; E78.00 Pure hypercholesterolemia, unspecified; G43.909 Migraine, unspecified, not intractable, without status migrainosus; Z88.2 Allergy status to sulfonamides; Z91.040 Latex allergy status; Z88.1 Allergy status to other antibiotic agents; Z90.710 Acquired absence of both cervix and uterus; Z98.890 Other specified postprocedural states

== ENCOUNTER → 2024-10-04 | Outpatient (CLI) | payer OTHER ==
[~2024-10-04] MED LIST changes: +MEDI-MECLIZINE25 MG PO; +PREDNISONE50 MG PO
== END | disposition home or self-care (01) ==
LOC: MAMMO 15:25
PROVIDERS: ATTEND Nurse Practitioner Family
DX: Z12.31 Encounter for screening mammogram for malignant neoplasm of breast (principal)

== ENCOUNTER → 2024-11-01 | Outpatient (CLI) | payer OTHER | END | disposition home or self-care (01) | LOC: MAMMO 01:21 | PROVIDERS: ATTEND Nurse Practitioner Family | DX: N60.01 Solitary cyst of right breast (principal); D24.1 Benign neoplasm of right breast; R92.8 Other abnormal and inconclusive findings on diagnostic imaging of breast ==

== ENCOUNTER 2025-05-09 02:46 | Emergency (ER) | payer OTHER ==
[~2025-05-09] VITALS: Ht 149.8 cm; Wt 63.5 kg
== END 2025-05-09 04:25 | disposition home or self-care (01) ==
LOC: ED 02:46
DX: S06.0X0A Concussion without loss of consciousness, initial encounter (principal); S00.03XA Contusion of scalp, initial encounter; E78.00 Pure hypercholesterolemia, unspecified; G43.909 Migraine, unspecified, not intractable, without status migrainosus; F17.210 Nicotine dependence, cigarettes, uncomplicated; Z88.2 Allergy status to sulfonamides; Z86.73 Personal history of transient ischemic attack (TIA), and cerebral infarction without residual deficits; Z88.8 Allergy status to other drugs, medicaments and biological substances; Z91.040 Latex allergy status; Z98.890 Other specified postprocedural states; Z90.710 Acquired absence of both cervix and uterus; W22.8XXA Striking against or struck by other objects, initial encounter; Y93.89 Activity, other specified; Y92.89 Other specified places as the place of occurrence of the external cause; Y99.8 Other external cause status

== ENCOUNTER → 2025-07-17 | Outpatient (CLI) | payer OTHER | END | disposition home or self-care (01) | LOC: ORTHO 04:59 | PROVIDERS: ATTEND Orthopaedic Surgery | DX: M19.012 Primary osteoarthritis, left shoulder (principal); M25.512 Pain in left shoulder ==